=== PATIENT | male | born 1990 | race Hispanic/Latino ===

== ENCOUNTER 2018-02-12 03:35 | Emergency (ER) | payer SELFPAY ==
[2018-02-12 03:41] VITALS: BP 150/96; PULSE 92; RESP 22; TEMP 98.2; O2SAT 98
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
== END 2018-02-12 04:36 | disposition home or self-care (01) ==
LOC: EDBD 03:35 → SUPCPDRO 03:35 → C.ER 03:35
DX: S00.81XA Abrasion of other part of head, initial encounter (principal); Y08.89XA Assault by other specified means, initial encounter